=== PATIENT | male | born 1955 | race Caucasian/White ===

== ENCOUNTER → 2017-11-21 | Outpatient (CLI) | payer OTHER ==
[~2017-11-21] VITALS: Ht 180.3 cm; Wt 129.7 kg
[~2017-11-21] MED LIST: CALCIUM + D3 E1 EACH PO; GLUCOPHAGE1000 MG PO; LIPITOR10 MG PO; NORVASC5 MG PO; PRILOSEC OTC20 MG PO; SYNTHROID150 MCG PO; VICTOZA 2-0.6 MG/0.1 SC; ZESTRIL40 MG PO
== END | disposition home or self-care (01) ==
LOC: AMB 09:24
PROVIDERS: Internal Medicine
DX: Z12.11 Encounter for screening for malignant neoplasm of colon (principal); D12.2 Benign neoplasm of ascending colon; D12.5 Benign neoplasm of sigmoid colon; K64.8 Other hemorrhoids; E11.9 Type 2 diabetes mellitus without complications; Z82.49 Family history of ischemic heart disease and other diseases of the circulatory system; Z87.891 Personal history of nicotine dependence
CPT/HCPCS: 82948; 88305; 93005; J2250